=== PATIENT | male | born 1940 | race Hispanic/Latino ===

== ENCOUNTER 2017-06-23 11:39 | Day surgery (SDC) | payer MEDICARE ==
[~2017-06-23 11:39] MED LIST: ADRENALIN ONE; ANCEF/STERILE WATER 2 GM/20 ML IV NR; DEPO-MEDROL ONE; MARCAINE 0.25% INFILTRATI ONE
[2017-06-23] MEDS ORDERED: SUBLIMAZE ONE ×2 (12:54→14:29)
[2017-06-23] MEDS ORDERED: VERSED ONE (12:54)
[2017-06-23] MEDS ORDERED: MARCAINE 0.5% 30 ML INFILTRATI ONE (12:54)
[2017-06-23] MEDS ORDERED: NACL 0.9% 1000 ML 1,000 ML ONE (12:56)
[2017-06-23] MEDS ORDERED: NACL 0.9% 1000 ML 1,000 ML IV SCH ×2 (14:00→15:00)
--- NOTE | 2017-06-23 14:10 | Anesthesia Day of Surgery ---
Anesthesia Day of Surgery - Day of Surgery Patient Examined: Yes Patient H&P Reviewed: Yes Patient is NPO: Yes Beta Blockers: Yes (taken this morning)
--- NOTE | 2017-06-23 14:15 | Anesthesia Consultation ---
Anesthesia Consult and Med Hx Date of service: 06/23/17 - Airway Anesthetic Teeth Evaluation: Caps (front incisor, few broken molars.) ROM Head & Neck: Adequate Mental/Hyoid Distance: Adequate Mallampati Class: Class IV Intubation Access Assessment: Possibly Difficult - Pulmonary Exam CTA: Yes - Cardiac Exam Cardiac Exam: RRR - Pre-Operative Health Status ASA Pre-Surgery Classification: ASA3 Proposed Anesthetic Plan: General - Pulmonary Hx Smoking: No (STOPPED X 45 YRS- 1/2 PPD X 8 YRS) Hx Sleep Apnea: No (HORACIO PRE SCREEN HIGH RISK) - Cardiovascular System Hx Hypertension: Yes (HL) Hx Coronary Artery Disease: Yes (s/p CABG 2013 6 vessels but no ND.) Hx Angina: No - Central Nervous System Hx Back Pain: Yes - Gastrointestinal Hx Ulcer: Yes - Endocrine Hx Cirrhosis: Yes (20 YRS AGO-stable/unchanged, per patient, since) - Other Systems Hx Alcohol Use: Yes (WINE QD) Hx Cancer: No - Additional Comments Anesthesia Medical History Comments: knee pain. SOB 2/2 sinusitis. sleeps on 2pillow. Can climb 2 FOS but slowly 2/2 knee pain.
[2017-06-23] MEDS ORDERED: ZOFRAN IV PRN (14:16)
[2017-06-23] MEDS ORDERED: DILAUDID IV PRN (14:16)
[2017-06-23] MEDS ORDERED: DIPRIVAN 10 MG/ML IV ONE (14:28)
[2017-06-23] MEDS ORDERED: XYLOCAINE MPF 2% ONE (14:28)
[2017-06-23] MEDS ORDERED: ZEMURON IV ONE (14:29)
[2017-06-23] MEDS ORDERED: ZOFRAN ONE (14:29)
[2017-06-23] MEDS ORDERED: DECADRON ONE (14:29)
[2017-06-23] MEDS ORDERED: ADRENALIN IV ONE (15:20)
--- NOTE | 2017-06-23 17:33 | Procedure Note ---
Date of procedure: 06/23/17 Pre-op diagnosis: left rotator cuff tear Post-op diagnosis: same Procedure: Arthroscopy left shoulder with repair of rotator cuff tear and subacromial decompression Procedure The patient was given a scalene nerve block in preop holding this is followed by transfer the patient to the operating room. The patient was given general anesthesia He was turned into the right lateral decubitus position at which point the left shoulder was prepped and draped in the usual sterile manner a timeout procedure was done to identify the patient and the correct operative site. Routine arthroscopic portals were made about the subacromial space following introduction of the arthroscope and insufflation of the subacromial space with normal saline solution examination revealed these findings patient was noted to have hypertrophy of the subacromial bursa along with a 60-70% partial-thickness tear in the supraspinatus portion of the rotator cuff tendon this was evaluated using a arthroscopic probe The partial-thickness tear was converted to a full-thickness tear using a combination of the tissue ablator and arthroscopic shaver next the rotator cuff tear was repaired using a suture anchor technique after pulling the rotator cuff tendon into the region of the anatomic footprint it was then secured by way of the locking mechanisms within the suture anchor construct the shoulder joint was then taken through range of motion and it did not appear to be any major tension noted at the repair site C4.5 acromionizer was brought in and the distal acromion and portions of the distal clavicle were debrided The wound was copiously irrigated and the stab wounds were repaired routine. Dressings were applied the patient tolerated the procedure there were no complications he was seen and was taken to postanesthesia recovery in a stable condition Anesthesia: EDY, regional Surgeon: GARRETT WILSON Estimated blood loss: minimal Pathology: none Condition: stable Disposition: PACU
[2017-06-23] MEDS ORDERED: NORCO 7.5/325 PO ONE (19:00)
[2017-06-23 20:36] VITALS: BP 111/60
== END 2017-06-23 11:40 | disposition home or self-care (01) ==
LOC: OR 11:39
PROVIDERS: ATTEND Orthopaedic Surgery
DX: M75.102 Unspecified rotator cuff tear or rupture of left shoulder, not specified as traumatic (principal); Z95.1 Presence of aortocoronary bypass graft; I10 Essential (primary) hypertension; E78.00 Pure hypercholesterolemia, unspecified; Z98.890 Other specified postprocedural states; I25.10 Atherosclerotic heart disease of native coronary artery without angina pectoris
CPT/HCPCS: 29824; 29826; 29827; C1713; J0171; J0690; J1030; J1100; J2250; J2405; J2704; J3010; J7030